=== PATIENT | male | born 1995 | race Asian ===

== ENCOUNTER → 2017-11-25 | Outpatient (CLI) | payer OTHER | LOC: COL.RAD 08:40 | DX: M25.551 Pain in right hip (principal) | CPT/HCPCS: A9503 ==

== ENCOUNTER → 2018-01-23 | Outpatient (CLI) | payer OTHER | LOC: COL.RAD 08:00 | DX: M54.5 Low back pain (principal); M25.551 Pain in right hip | CPT/HCPCS: G0260; J3301 ==